=== PATIENT | female | born 2000 | race Caucasian/White ===

== ENCOUNTER 2023-09-21 15:58 | Emergency (ER) | payer OTHER ==
[~2023-09-21] VITALS: Ht 152.4 cm; Wt 50.0 kg
[2023-09-21 16:05] VITALS: BP 121/64; TEMP 98.6; O2SAT 100
[2023-09-21] MEDS ORDERED: IBUPROFEN 600MG TABLET PO ONE (16:30)
[2023-09-21 18:52] VITALS: PULSE 80; RESP 18
[2023-09-21] MEDS ORDERED: IBUPROFEN 600MG TABLET PO NR (21:00)
== END 2023-09-21 21:01 | disposition home or self-care (01) ==
LOC: ER 15:58
DX: M53.3 Sacrococcygeal disorders, not elsewhere classified (principal); V03.99XA Pedestrian with other conveyance injured in collision with car, pick-up truck or van, unspecified whether traffic or nontraffic accident, initial encounter; Y93.89 Activity, other specified; Y92.89 Other specified places as the place of occurrence of the external cause; Y99.8 Other external cause status
CPT/HCPCS: 71045; 72100; 72170; 81025; 99284